=== PATIENT | male | born 1950 | race Caucasian/White ===

== ENCOUNTER 2016-12-20 07:37 | Day surgery (SDC) | payer MEDICARE, MEDICAID ==
[~2016-12-20] VITALS: Ht 185.4 cm; Wt 63.6 kg
[~2016-12-20 07:37] MED LIST: AMLO10TA4 PO; ASPI325T80 PO; ATOR40TA78 PO; GABA600T2 PO; HYDR25TA11 PO; PANT20TA3 PO; ZOLP10TA PO
[2016-12-20 08:19] VITALS: BP 131/68
[2016-12-20] MEDS ORDERED: OXYCODONE PO (08:25)
== END 2016-12-20 08:50 | disposition home or self-care (01) ==
LOC: OUT 07:37
PROVIDERS: ATTEND Internal Medicine Gastroenterology
DX: C16.9 Malignant neoplasm of stomach, unspecified (principal); Z53.8 Procedure and treatment not carried out for other reasons
CPT/HCPCS: 93005